=== PATIENT | male | born 1950 | race Caucasian/White ===

== ENCOUNTER 2023-09-14 18:04 | Emergency (ER) | payer MEDICARE ==
[~2023-09-14] VITALS: Ht 165.1 cm; Wt 81.8 kg
[2023-09-14 18:48] VITALS: BP 201/88
[2023-09-14 18:51] VITALS: BP 199/82
[2023-09-14 18:59] VITALS: BP 187/77
[2023-09-14 19:01] VITALS: BP 192/78
[2023-09-14 19:07] LABS: URINE BILIRUBIN - DIPSTICK Negative (NEGATIVE); URINE BLOOD DIPSTICK Large (NEGATIVE); URINE GLUCOSE - DIPSTICK Negative (NEGATIVE); URINE KETONE Negative (NEGATIVE); URINE LEUK ESTERASE Negative (NEGATIVE); URINE NITRITE - DIPSTICK Negative (Negative); URINE PROTEIN - DIPSTICK Negative (NEG-TRACE); URINE SPECIFIC GRAVITY 1.015
[2023-09-14 19:08] LABS: URINE COLOR Dark yellow
[2023-09-14 19:09] LABS: BASO% 0.6 % (0-3); EOS% 7.3 % (0-8); HEMATOCRIT 42.4 % (39.0-50.0); IMMATURE GRANULOCYTES 0.2 % (0.0-5.0); LYMPH% 24.6 % (15-41); MEAN CELL VOLUME 85.3 fL CALC (80.0-100.0); MEAN CORPUSCULAR HGB 28.2 pG CALC (26.0-32.0); NEUT# 6.29 thou/uL (1.82-7.42); NEUT% 59.3 % (42-76); RED BLOOD COUNT 4.97 mill/uL (4.70-6.10)
[2023-09-14 19:14] LABS: URINE RBC TNTC RBC/hpf (0-5)
[2023-09-14 19:21] LABS: ALBUMIN 4.3 g/dL (3.2-5.0); ALKALINE PHOSPHATASE 93 u/l (38-126); ANION GAP 11 (6-22 (CALC)); BILIRUBIN, TOTAL 0.6 mg/dL (0.2-1.3); BUN 13 mg/dL (8-23); BUN/CREATININE RATIO 27 (12-20 (CALC)); CARBON DIOXIDE 25 mmol/l (22-30); CHLORIDE 106 mmol/l (95-108); CREATININE 0.5 mg/dL (0.7-1.3); GFR FOR AFR.AMER. > 60 ML/MIN (>=60 (CALC)); GFR OTHER RACES > 60 ML/MIN (>=60 (CALC)); POTASSIUM 4.4 mmol/l (3.5-5.1); SGOT/AST 30 u/l (19-48); SODIUM 138 mmol/l (137-146); TOTAL PROTEIN 7.2 g/dL (6.3-8.2)
[2023-09-14 22:44] VITALS: BP 180/85
[2023-09-14 23:12] VITALS: BP 180/85
[2023-09-14] MEDS ORDERED: TAMSULOSIN0.4 MG PO (23:27)
== END 2023-09-14 23:41 | disposition home or self-care (01) ==
LOC: ED 18:04
PROVIDERS: Family Medicine
DX: N20.0 Calculus of kidney (principal); I10 Essential (primary) hypertension; N28.9 Disorder of kidney and ureter, unspecified; R42 Dizziness and giddiness